=== PATIENT | female | born 1950 | race Caucasian/White ===

== ENCOUNTER 2021-01-14 05:58 | Inpatient (IN) | payer MEDICARE, MEDICAID ==
[~2021-01-14] VITALS: Ht 162.6 cm; Wt 54.5 kg
[2021-01-14] MEDS ORDERED: nitroGLYCERIN 1gm ointment UD TP ONE (06:25)
[2021-01-14] MEDS ORDERED: CefTRIAXone/D5W-Rocephin 1gm 50 ML IV ONE (07:10)
[2021-01-14 07:30] LABS: BASOPHILS # (AUTO) 0.1 X10'3 (0-0.2); BASOPHILS % (AUTO) 0.4 % (0-1); EOSINOPHILS % (AUTO) 0 % (0-6); HEMATOCRIT 35.2 % (35.0-45.0); HEMOGLOBIN 11.7 g/dl (12.0-16.0); LYMPHOCYTES # (AUTO) 0.9 X10'3 (1.1-4.8); LYMPHOCYTES % (AUTO) 4.5 % (21-51); MEAN CORPUSCULAR HEMOGLOBIN 27.7 PG (27.0-31.0); MEAN CORPUSCULAR HGB CONC 33.1 g/dL (33.0-36.5); MEAN CORPUSCULAR VOLUME 83.7 FL (78-98); MEAN PLATELET VOLUME 8.4 FL (7.4-10.4); MONOCYTES # (AUTO) 0.8 X10'3 (0-0.9); MONOCYTES % (AUTO) 4.1 % (2-12); NEUTROPHILS # (AUTO) 17.3 X10'3 (1.8-7.7); PLATELET COUNT 328 X10'3 (140-440); RED BLOOD COUNT 4.21 X10'6 (4.20-5.60)
[2021-01-14 07:38] LABS: UA COLLECTION TYPE CLN CATCH MIDSTREAM
[2021-01-14 07:39] LABS: CLARITY,URINE CLEAR (Clear); COLOR,URINE YELLOW (Yellow); GLUCOSE, URINE NEGATIVE (Neg); KETONES,URINE NEGATIVE (Neg); LEUKOCYTE ESTERASE ,URINE NEGATIVE (Neg); NITRITES, URINE NEGATIVE (Neg); OCCULT BLOOD,URINE NEGATIVE (Neg); PH,URINE 6.5 (4.8-8.0); PROTEIN,URINE NEGATIVE (Neg); UROBILINOGEN,URINE 0.2 E.U/dL (0.2-1.0)
[2021-01-14 07:43] LABS: ALANINE AMINOTRANSFERASE 17 U/L (12-78); ALBUMIN 3.7 G/DL (3.4-5.0); ALBUMIN/GLOBULIN RATIO 0.9 (1.1-1.5); ALKALINE PHOSPHATASE 111 IU/L (46-116); ANION GAP 10 (8-16); ASPARTATE AMINO TRANSFERASE 15 U/L (10-37); BILIRUBIN,TOTAL 0.4 MG/DL (0.1-1.0); BLOOD UREA NITROGEN 12 MG/DL (7-18); BUN/CREATININE RATIO 11.9 (6.6-38.0); CALCIUM 8.8 MG/DL (8.5-10.1); CHLORIDE 104 MMOL/L (99-107); CREATININE 1.01 MG/DL (0.40-0.90); GLUCOSE 178 MG/DL (70-104); POTASSIUM 3.1 MMOL/L (3.5-5.1); SODIUM 140 MMOL/L (135-145); TOTAL PROTEIN 7.7 G/DL (6.4-8.2); eGFR 54 ML/MIN
[2021-01-14 07:46] LABS: BILIRUBIN,DIRECT 0.1 MG/DL (0-0.3); LIPASE 62 U/L (73-393); TROPONIN I < 0.04 NG/ML (0.0-0.05)
[2021-01-14 07:48] LABS: URINE AMPHETAMINE SCREEN POSITIVE (Neg); URINE BARBITUATE SCREEN NEGATIVE (Neg); URINE BENZODIAZEPINES SCREEN NEGATIVE (Neg); URINE CANNABINOID SCREEN POSITIVE (Neg); URINE COCAINE SCREEN NEGATIVE (Neg); URINE METHADONE SCREEN NEGATIVE (Neg); URINE OPIATE SCREEN NEGATIVE (Neg); URINE PHENCYCLIDINE SCREEN NEGATIVE (Neg)
[2021-01-14] MEDS ORDERED: iohexol 300mg/ml 100ml inj. ONE (08:05)
[2021-01-14] MEDS ORDERED: normal saline 1000ml 1,000 ML IV ONE (09:05)
[2021-01-14] MEDS ORDERED: metoclopramide 5 mg/ml inj IV PRN (09:55)
[2021-01-14] MEDS ORDERED: azithromycin/NS 500mg/250ml 250 ML IV SCH (09:55)
[2021-01-14] MEDS ORDERED: magnesium 4gm in 100ml NS 100 ML IV PRN (09:55)
[2021-01-14] MEDS ORDERED: ondansetron/PF 4mg/2ml inj IV PRN (09:55)
[2021-01-14] MEDS ORDERED: magnesium Cl slow-release 64mg tablet PO PRN (09:55)
[2021-01-14] MEDS ORDERED: acetaminophen 650mg rectal suppository RC PRN (09:55)
[2021-01-14] MEDS ORDERED: magnesium 2GM in 50ml NS 50 ML IV PRN (09:55)
[2021-01-14] MEDS ORDERED: potassium Cl 40MEQ/1/2NS 520ml 520 ML IV PRN (09:55)
[2021-01-14] MEDS ORDERED: mag hydrox/Alum hydrox/simeth 30ml oral suspension PO PRN (09:55)
[2021-01-14] MEDS ORDERED: potassium Cl 20 mEq SR tablet PO PRN (09:55)
[2021-01-14] MEDS ORDERED: magnesium hydroxide 30ml (MOM) UD suspension PO PRN (09:55)
[2021-01-14] MEDS ORDERED: acetaminophen 325mg tablet PO PRN ×2 (09:55)
[2021-01-14] MEDS ORDERED: HYDROcodone/acetaminophen 10/325mg tab PO PRN (09:55)
[2021-01-14] MEDS ORDERED: HYDROcodone/acetaminophen 5mg/325mg tablet PO PRN (09:55)
[2021-01-14 11:17] LABS: PARTIAL THROMBOPLASTIN TIME 36 SECONDS (22-32)
[2021-01-14] MEDS: normal saline 1000ml 1,000 ML IV SCH (11:44)
--- NOTE | 2021-01-14 12:38 | NUR ---
assumed care of pt from Ghazala RAE
[2021-01-14] MEDS ORDERED: UNABLE TO OBTAIN (12:48)
--- NOTE | 2021-01-14 12:50 | NUR ---
FIRST CONTACT WITH PT, PT IS LYING ON HER BACK, OPENS EYES VERY BRIEFLY TO PAIN, PT NOT ANSWERING QUESTIONS, VERGAL IS UNCOMPREHENSIABLE, NOT FOLLOWING COMMANDS, RESPS EVEN AND SLIGHTLY LABORED, LUNGS COARSE BILATERALLY, GURGLING SOUND IN THROAT, PT IS ON ROOM AIR PULSE OX WITH GOOD PLETH 96%, SINUS RHYTHM ON THE MONITOR NO ECTOPY, RESP RATE IS 28, NO SWELLING TO EXTREMITIES, IV TO LEFT AC IS PATENT AND CLEAR, NS INFUSING AT 7OML/HR
--- NOTE | 2021-01-14 13:15 | NUR ---
paged Dr. Schmitt, waiting for call back
--- NOTE | 2021-01-14 13:30 | NUR ---
Dr Schmitt aware of pt being obtunded, will place order for MRI of brain and med for blood pressure
--- NOTE | 2021-01-14 14:20 | NUR ---
Dr Schmitt gave verbal pt is ok to go off monitor to CT and MRI, pt to go to CT first
[2021-01-14] MEDS: hydrALAZINE 20mg/ml inj. IV PRN (14:24)
[2021-01-14] MEDS: potassium Cl 40MEQ/1/2NS 520ml 520 ML IV PRN (14:27)
--- NOTE | 2021-01-14 14:37 | NUR ---
senior engineering technician said CTA of head cannot be done as she has already received contrast today, have to wait 24 hours before doing per senior engineering technician, sent page to Dr Schmitt and senior engineering technician said she would let Dr Schmitt know as well
--- NOTE | 2021-01-14 15:00 | NUR ---
PT IS SITTING UP IN BED, INCONTINENT OF LARGE AMOUNT OF URINE, CHANGED PT AND BEDDING, NO SKIN BREAKDOWN TO BACK OR COCCYX, PT IS MOVING ALL MOVING ALL EXTREMITIES, EYES OPEN TO VOICE, ORIENTED TO PERSON ONLY, STILL NOT FOLLOWING COMMANDS, DR DURHAM GAVE VERBAL ORDER TO SEND PT TO MRI
--- NOTE | 2021-01-14 15:21 | NUR ---
PHONE NUMBER ON FILE IS NOT IN SERVICE, UNABLE TO CONTACT FAMILY FOR INFO NEEDED FOR MRI SCREENING SHEET
--- NOTE | 2021-01-14 15:23 | NUR ---
CALLED MRI, PER TECH PT WILL DONE AT END OF DAY OR TOMORROW, TECH IS AWARE PT UNABLE TO FILL OUT SCREENING SHEET, NOR IS FAMILY AVAILABLE
[2021-01-14] MEDS: VANCOmycin 1250MG/NS 250ml Bag 250 ML IV ONE ×2 (15:45→17:02)
--- NOTE | 2021-01-14 16:08 | NUR ---
Jeronimo Oconnor, son, called to talk with pt, she is sleeping,
--- NOTE | 2021-01-14 17:01 | NUR ---
ATTEMPTED REPORT, NURSE TO CALL BACK
--- NOTE | 2021-01-14 17:35 | NUR ---
REPORT TO MADALYN RAE
--- NOTE | 2021-01-14 17:40 | NUR ---
Received report from KYRA García in ED - pending patient.
--- NOTE | 2021-01-14 18:00 | NUR ---
SHANAE BYRNE, SON,
--- NOTE | 2021-01-14 18:41 | NUR ---
Problems reprioritized. Patient report given, questions answered & plan of care reviewed with KYRA aBllesteros - still pending patient from ED.
[2021-01-14 19:20] VITALS: BP 155/56
[2021-01-14] MEDS: K and/or MAG REPLACEMENT MC SCH (20:00)
[2021-01-14] MEDS ORDERED: docusate sod 100mg capsule PO SCH (20:00)
[2021-01-14] MEDS: heparin, porcine 5000 units/ml vial SQ SCH (20:07)
[2021-01-14] MEDS ORDERED: temazepam 15mg capsule PO PRN (21:00)
[2021-01-14] MEDS: piperacillin/tazo 3.375gm/50ml 50 ML IV SCH (21:47)
[2021-01-14 22:00] VITALS: BP 158/67
[2021-01-15] VITALS (7 sets, daily range): BP systolic 102–167; BP diastolic 42–71
[2021-01-15] MEDS: piperacillin/tazo 3.375gm/50ml 50 ML IV SCH ×3 (04:30→18:00)
[2021-01-15] MEDS: normal saline 1000ml 1,000 ML IV SCH ×2 (04:30→14:31)
--- NOTE | 2021-01-15 06:14 | NUR ---
Problems reprioritized. Patient report given, questions answered & plan of care reviewed with KYRA Rizvi.
[2021-01-15 07:05] LABS: BASOPHILS # (AUTO) 0.1 X10'3 (0-0.2); BASOPHILS % (AUTO) 0.3 % (0-1); EOSINOPHILS % (AUTO) 0 % (0-6); HEMATOCRIT 31.8 % (35.0-45.0); HEMOGLOBIN 10.3 g/dl (12.0-16.0); LYMPHOCYTES # (AUTO) 1.3 X10'3 (1.1-4.8); LYMPHOCYTES % (AUTO) 5.4 % (21-51); MEAN CORPUSCULAR HEMOGLOBIN 27.2 PG (27.0-31.0); MEAN CORPUSCULAR HGB CONC 32.4 g/dL (33.0-36.5); MEAN CORPUSCULAR VOLUME 83.9 FL (78-98); MEAN PLATELET VOLUME 8.3 FL (7.4-10.4); MONOCYTES % (AUTO) 3.9 % (2-12); NEUTROPHILS # (AUTO) 22.1 X10'3 (1.8-7.7); NEUTROPHILS % (AUTO) 90.4 % (42-75); PLATELET COUNT 269 X10'3 (140-440); RED BLOOD COUNT 3.79 X10'6 (4.20-5.60); RED CELL DISTRIBUTION WIDTH 14.2 % (11.5-14.5); WHITE BLOOD COUNT 24.5 X10'3 (4.5-11.0)
[2021-01-15 07:22] LABS: ALANINE AMINOTRANSFERASE 18 U/L (12-78); ALBUMIN 2.5 G/DL (3.4-5.0); ALBUMIN/GLOBULIN RATIO 0.7 (1.1-1.5); ALKALINE PHOSPHATASE 104 IU/L (46-116); ANION GAP 10 (8-16); ASPARTATE AMINO TRANSFERASE 18 U/L (10-37); BILIRUBIN,TOTAL 0.6 MG/DL (0.1-1.0); BLOOD UREA NITROGEN 13 MG/DL (7-18); CALCIUM 8.3 MG/DL (8.5-10.1); CHLORIDE 107 MMOL/L (99-107); CREATININE 0.93 MG/DL (0.40-0.90); GLUCOSE 120 MG/DL (70-104); POTASSIUM 3.2 MMOL/L (3.5-5.1); SODIUM 139 MMOL/L (135-145); TOTAL CARBON DIOXIDE 22.3 MMOL/L (24-32); TOTAL PROTEIN 6.2 G/DL (6.4-8.2); eGFR 60 ML/MIN
[2021-01-15] MEDS: hydrALAZINE 20mg/ml inj. IV PRN (07:28)
[2021-01-15] MEDS: heparin, porcine 5000 units/ml vial SQ SCH ×2 (07:29→20:38)
[2021-01-15] MEDS: K and/or MAG REPLACEMENT MC SCH ×2 (08:00→20:00)
[2021-01-15] MEDS ORDERED: CefTRIAXone/D5W-Rocephin 1gm 50 ML IV SCH (08:00)
--- NOTE | 2021-01-15 09:14 | NUR ---
Called son Jeronimo Oconnor [phone] - left message to call back for MRI approval. Called John Oconnor [phone]. Left message to call back as well. Need approval over phone for MRI of head.
[2021-01-15] MEDS: potassium Cl 40MEQ/1/2NS 520ml 520 ML IV PRN (10:12)
--- NOTE | 2021-01-15 10:45 | NUR ---
Bed side swallow study performed - pt showed no signs of aspiration. Will contact MD to see if patient can eat now.
[2021-01-15] MEDS: lisinopril 20mg tablet PO SCH (10:52)
[2021-01-15] MEDS ORDERED: iohexol 350MG/ML 100ml bottle IV ONE (11:22)
--- NOTE | 2021-01-15 12:20 | NUR ---
Rosalina Schmitt PAGER ID: [phone] MESSAGE: Room 3013A. Mary Alice Oconnor. MRI/CTA performed. Bed side swallow study performed - pt showed no signs of aspiration. Ok to eat lunch? Thanks, Belkys [phone]
--- NOTE | 2021-01-15 12:22 | NUR ---
Per MD - pt ok to eat regular diet.
[2021-01-15] MEDS: vancomycin/NS 1 GM ADD-VANTAGE 250 ML IV SCH (16:04)
--- NOTE | 2021-01-15 17:45 | NUR ---
Pt has been sleeping most of the day. She has been easily aroused and is only oriented to name. Pleasantly confused and was even able to walk with PT this AM. She has been for a CTA of neck/head and MRI - Pending another MRI 01/16 for orbits, face, neck d/t 2x2 cm lesion right thyroid with and without contrast. Continue to monitor patient throughout shift.
--- NOTE | 2021-01-15 18:29 | NUR ---
Problems reprioritized. Patient report given, questions answered & plan of care reviewed with KYRA Shay.
--- NOTE | 2021-01-15 18:57 | NUR ---
Patient in room PCU 3013. I have received report from MADALYN RAE and had the opportunity to ask questions and assume patient care.
[2021-01-15] MEDS: lactobacillus rhamnosus 10,000 MMU CELLS/CAPSULE PO SCH (20:38)
[2021-01-16] MEDS: piperacillin/tazo 3.375gm/50ml 50 ML IV SCH ×3 (00:39→16:06)
[2021-01-16 02:00] VITALS: BP 162/72
[2021-01-16] MEDS: normal saline 1000ml 1,000 ML IV SCH ×2 (04:50→19:07)
[2021-01-16 06:00] VITALS: BP 145/67
[2021-01-16 06:22] LABS: BASOPHILS # (AUTO) 0.1 X10'3 (0-0.2); BASOPHILS % (AUTO) 0.6 % (0-1); EOSINOPHILS # (AUTO) 0.1 X10'3 (0-0.9); EOSINOPHILS % (AUTO) 0.8 % (0-6); HEMATOCRIT 28.9 % (35.0-45.0); HEMOGLOBIN 9.5 g/dl (12.0-16.0); LYMPHOCYTES # (AUTO) 1.4 X10'3 (1.1-4.8); LYMPHOCYTES % (AUTO) 10.9 % (21-51); MEAN CORPUSCULAR HEMOGLOBIN 27.4 PG (27.0-31.0); MEAN CORPUSCULAR VOLUME 83.1 FL (78-98); MEAN PLATELET VOLUME 8.4 FL (7.4-10.4); MONOCYTES # (AUTO) 0.6 X10'3 (0-0.9); MONOCYTES % (AUTO) 4.3 % (2-12); NEUTROPHILS % (AUTO) 83.4 % (42-75); PLATELET COUNT 238 X10'3 (140-440); RED BLOOD COUNT 3.47 X10'6 (4.20-5.60); RED CELL DISTRIBUTION WIDTH 14.4 % (11.5-14.5); WHITE BLOOD COUNT 13.2 X10'3 (4.5-11.0)
--- NOTE | 2021-01-16 06:33 | NUR ---
Problems reprioritized. Patient report given, questions answered & plan of care reviewed with SANTIAGO RN.
[2021-01-16 06:40] LABS: ALANINE AMINOTRANSFERASE 16 U/L (12-78); ALBUMIN 2.4 G/DL (3.4-5.0); ALBUMIN/GLOBULIN RATIO 0.6 (1.1-1.5); ALKALINE PHOSPHATASE 110 IU/L (46-116); ANION GAP 12 (8-16); ASPARTATE AMINO TRANSFERASE 12 U/L (10-37); BILIRUBIN,TOTAL 0.3 MG/DL (0.1-1.0); BLOOD UREA NITROGEN 15 MG/DL (7-18); BUN/CREATININE RATIO 15.6 (6.6-38.0); CALCIUM 8.3 MG/DL (8.5-10.1); CHLORIDE 107 MMOL/L (99-107); CREATININE 0.96 MG/DL (0.40-0.90); GLUCOSE 88 MG/DL (70-104); MAGNESIUM 2.1 MG/DL (1.5-2.4); POTASSIUM 3.1 MMOL/L (3.5-5.1); SODIUM 140 MMOL/L (135-145); TOTAL CARBON DIOXIDE 20.7 MMOL/L (24-32); TOTAL PROTEIN 6.1 G/DL (6.4-8.2); eGFR 57 ML/MIN
[2021-01-16] MEDS: K and/or MAG REPLACEMENT MC SCH ×2 (08:18→21:10)
[2021-01-16] MEDS: lactobacillus rhamnosus 10,000 MMU CELLS/CAPSULE PO SCH ×2 (08:23→20:59)
[2021-01-16] MEDS: potassium Cl 20 mEq SR tablet PO PRN ×2 (08:24→20:59)
[2021-01-16] MEDS: lisinopril 20mg tablet PO SCH (08:24)
[2021-01-16] MEDS: heparin, porcine 5000 units/ml vial SQ SCH ×2 (08:25→21:02)
--- NOTE | 2021-01-16 08:46 | NUR ---
LAB VALUE TAKEN FROM LAB REPORTED TO PRIMARY RN.
[2021-01-16 11:00] VITALS: BP 151/57
--- NOTE | 2021-01-16 12:57 | NUR ---
Paged Dr. Schmitt PAGER ID: [phone] MESSAGE: [phone] Mary Alice Oconnor leaving AMA. Liliana RAE [phone] Addendum: 01/16/21 at 1302 by Liliana Huerta RN Dr. Schmitt deemed patient too confused to leave AMA.
--- NOTE | 2021-01-16 13:21 | NUR ---
PAGER ID: [phone] MESSAGE: CHELSEA ON TELE@[phone], I TALKED TO GEOFF ARROYO REGARDING [id number]. WE ARE NOT ABLE TO KEEP HER HERE UNLESS THERE IS A HOLD ORDER ON HER, OTHERWISE SHE WILL AMA.
--- NOTE | 2021-01-16 13:32 | NUR ---
PAGER ID: [phone] MESSAGE: CHELSEA NERI [facility]@[phone], ROB WHITE, 179 HOLD IS WHAT IS NEEDED, NO NEED TO GO BACK TO ER, [facility] TO EVAL TOMARR[facility]. THX
--- NOTE | 2021-01-16 14:25 | NUR ---
Agree with KYRA Trejosecond vp hr assessment.
[2021-01-16 15:00] VITALS: BP 150/59
[2021-01-16] MEDS: vancomycin/NS 1 GM ADD-VANTAGE 250 ML IV SCH (16:06)
[2021-01-16 18:00] VITALS: BP 152/64
--- NOTE | 2021-01-16 18:30 | NUR ---
Patient in room PCU 3013. I have received report from Brittanie RAE and had the opportunity to ask questions and assume patient care.
[2021-01-17] VITALS (9 sets, daily range): BP systolic 161–196; BP diastolic 58–82
[2021-01-17] MEDS: piperacillin/tazo 3.375gm/50ml 50 ML IV SCH ×3 (00:23→19:11)
[2021-01-17] MEDS: hydrALAZINE 20mg/ml inj. IV PRN ×3 (00:28→19:07)
[2021-01-17] MEDS ORDERED: hydrALAZINE 20mg/ml inj. IV ONE (02:40)
--- NOTE | 2021-01-17 02:42 | NUR ---
Called Md with regard to elevated BP of 185/58 RUE, 176/7 LUE. NEW ORDER RECEIVED FOR 1 TIME DOSE NOW OF 5MG iv HYDRALZINE.
--- NOTE | 2021-01-17 06:15 | NUR ---
Patient in room PCU 3013. I have received report from KYRA Dean and had the opportunity to ask questions and assume patient care.
--- NOTE | 2021-01-17 06:20 | NUR ---
Problems reprioritized. Patient report given, questions answered & plan of care reviewed with Liliana RAE.
[2021-01-17 07:10] LABS: BASOPHILS # (AUTO) 0.1 X10'3 (0-0.2); BASOPHILS % (AUTO) 1.1 % (0-1); EOSINOPHILS # (AUTO) 0.1 X10'3 (0-0.9); EOSINOPHILS % (AUTO) 0.7 % (0-6); HEMATOCRIT 32.2 % (35.0-45.0); HEMOGLOBIN 10.9 g/dl (12.0-16.0); LYMPHOCYTES # (AUTO) 1.2 X10'3 (1.1-4.8); LYMPHOCYTES % (AUTO) 12.8 % (21-51); MEAN CORPUSCULAR HEMOGLOBIN 27.8 PG (27.0-31.0); MEAN CORPUSCULAR HGB CONC 33.9 g/dL (33.0-36.5); MEAN CORPUSCULAR VOLUME 82.2 FL (78-98); MEAN PLATELET VOLUME 8.6 FL (7.4-10.4); MONOCYTES # (AUTO) 0.5 X10'3 (0-0.9); MONOCYTES % (AUTO) 5.4 % (2-12); NEUTROPHILS # (AUTO) 7.2 X10'3 (1.8-7.7); PLATELET COUNT 297 X10'3 (140-440); RED BLOOD COUNT 3.92 X10'6 (4.20-5.60); WHITE BLOOD COUNT 9.1 X10'3 (4.5-11.0)
[2021-01-17] MEDS: lactobacillus rhamnosus 10,000 MMU CELLS/CAPSULE PO SCH ×2 (07:49→19:27)
[2021-01-17 07:50] LABS: ALANINE AMINOTRANSFERASE 16 U/L (12-78); ALBUMIN 2.7 G/DL (3.4-5.0); ALBUMIN/GLOBULIN RATIO 0.6 (1.1-1.5); ALKALINE PHOSPHATASE 146 IU/L (46-116); ANION GAP 14 (8-16); ASPARTATE AMINO TRANSFERASE 14 U/L (10-37); BILIRUBIN,TOTAL 0.3 MG/DL (0.1-1.0); BLOOD UREA NITROGEN 9 MG/DL (7-18); BUN/CREATININE RATIO 11.3 (6.6-38.0); CALCIUM 8.7 MG/DL (8.5-10.1); CHLORIDE 108 MMOL/L (99-107); GLUCOSE 96 MG/DL (70-104); MAGNESIUM 2.1 MG/DL (1.5-2.4); POTASSIUM 3.9 MMOL/L (3.5-5.1); SODIUM 142 MMOL/L (135-145); TOTAL CARBON DIOXIDE 20.1 MMOL/L (24-32); TOTAL PROTEIN 6.9 G/DL (6.4-8.2); eGFR 71 ML/MIN
[2021-01-17] MEDS: lisinopril 20mg tablet PO SCH (07:50)
[2021-01-17] MEDS: heparin, porcine 5000 units/ml vial SQ SCH ×2 (07:51→19:27)
[2021-01-17] MEDS: K and/or MAG REPLACEMENT MC SCH ×2 (08:00→20:00)
[2021-01-17] MEDS: normal saline 1000ml 1,000 ML IV SCH ×2 (10:04→23:43)
--- NOTE | 2021-01-17 14:05 | NUR ---
Paged Dr. Feldman PAGER ID: [phone] MESSAGE: [phone] Mary Alice Oconnor; unable to do MRI as patient has stents in carotid; would you like US or CT? Liliana RAE [phone]
[2021-01-17] MEDS ORDERED: VANCOMYCIN LEVEL IV ONE (15:30)
[2021-01-17] MEDS: vancomycin/NS 1 GM ADD-VANTAGE 250 ML IV SCH (16:25)
--- NOTE | 2021-01-17 18:36 | NUR ---
Orientee documentation: I have reviewed and agree with all interventions, assessments performed and documented by KYRA Ramesh.
--- NOTE | 2021-01-17 18:36 | NUR ---
Student Medication Administration: For this medication-pass time frame, all medication were reviewed, dispensed, administered and documented per hospital policy by KYRA Ramesh.
--- NOTE | 2021-01-17 18:40 | NUR ---
Patient in room PCU 3013. I have received report from SUNNY RAE and had the opportunity to ask questions and assume patient care.
[2021-01-17] MEDS ORDERED: aspirin 81mg, enteric-coated 1 TAB TABLET.DR PO ONE (23:25)
[2021-01-18] VITALS (10 sets, daily range): BP systolic 63–203; BP diastolic 61–89
[2021-01-18] MEDS: piperacillin/tazo 3.375gm/50ml 50 ML IV SCH ×4 (00:12→23:19)
[2021-01-18] MEDS: vancomycin/NS 1 GM ADD-VANTAGE 250 ML IV SCH ×2 (04:42→16:09)
--- NOTE | 2021-01-18 06:30 | NUR ---
Problems reprioritized. Patient report given, questions answered & plan of care reviewed with VALENTIN RAE.
[2021-01-18 06:56] LABS: BASOPHILS # (AUTO) 0.1 X10'3 (0-0.2); EOSINOPHILS # (AUTO) 0.1 X10'3 (0-0.9); EOSINOPHILS % (AUTO) 1.5 % (0-6); HEMATOCRIT 34.7 % (35.0-45.0); HEMOGLOBIN 11.5 g/dl (12.0-16.0); LYMPHOCYTES # (AUTO) 1.5 X10'3 (1.1-4.8); LYMPHOCYTES % (AUTO) 22.9 % (21-51); MEAN CORPUSCULAR HEMOGLOBIN 27.6 PG (27.0-31.0); MEAN CORPUSCULAR HGB CONC 33.1 g/dL (33.0-36.5); MEAN CORPUSCULAR VOLUME 83.4 FL (78-98); MEAN PLATELET VOLUME 8.3 FL (7.4-10.4); MONOCYTES # (AUTO) 0.5 X10'3 (0-0.9); MONOCYTES % (AUTO) 7.8 % (2-12); NEUTROPHILS # (AUTO) 4.5 X10'3 (1.8-7.7); NEUTROPHILS % (AUTO) 66.8 % (42-75); PLATELET COUNT 358 X10'3 (140-440); RED BLOOD COUNT 4.16 X10'6 (4.20-5.60); RED CELL DISTRIBUTION WIDTH 14.2 % (11.5-14.5); WHITE BLOOD COUNT 6.8 X10'3 (4.5-11.0)
[2021-01-18 07:19] LABS: ALANINE AMINOTRANSFERASE 12 U/L (12-78); ALBUMIN 2.6 G/DL (3.4-5.0); ALBUMIN/GLOBULIN RATIO 0.6 (1.1-1.5); ALKALINE PHOSPHATASE 119 IU/L (46-116); ANION GAP 10 (8-16); ASPARTATE AMINO TRANSFERASE 11 U/L (10-37); BILIRUBIN,TOTAL 0.3 MG/DL (0.1-1.0); BLOOD UREA NITROGEN 6 MG/DL (7-18); BUN/CREATININE RATIO 6.7 (6.6-38.0); CALCIUM 8.8 MG/DL (8.5-10.1); CHLORIDE 107 MMOL/L (99-107); CHOL/HDL RATIO 5.9 (0.00-4.99); CHOLESTEROL 195 MG/DL (0-200); CREATININE 0.89 MG/DL (0.40-0.90); GLUCOSE 102 MG/DL (70-104); HDL CHOLESTEROL 33 MG/DL (35-60); LDL CHOLESTEROL 125 MG/DL (50-100); MAGNESIUM 2.1 MG/DL (1.5-2.4); POTASSIUM 3.6 MMOL/L (3.5-5.1); SODIUM 139 MMOL/L (135-145); TOTAL CARBON DIOXIDE 21.7 MMOL/L (24-32); TOTAL PROTEIN 6.7 G/DL (6.4-8.2); TRIGLYCERIDES 183 MG/DL (20-135); eGFR 63 ML/MIN
[2021-01-18] MEDS: K and/or MAG REPLACEMENT MC SCH ×2 (08:00→20:00)
[2021-01-18] MEDS: aspirin 81mg, enteric-coated 1 TAB TABLET.DR PO SCH (08:28)
[2021-01-18] MEDS: lisinopril 20mg tablet PO SCH (08:29)
[2021-01-18] MEDS: heparin, porcine 5000 units/ml vial SQ SCH ×2 (08:29→20:19)
[2021-01-18] MEDS: atorvastatin 20mg tablet PO SCH (08:29)
[2021-01-18] MEDS: normal saline 1000ml 1,000 ML IV SCH (08:30)
[2021-01-18] MEDS: lactobacillus rhamnosus 10,000 MMU CELLS/CAPSULE PO SCH ×2 (08:32→20:18)
--- NOTE | 2021-01-18 10:41 | NUR ---
Hospitalist aware that MRI can not be done r/t carotid stents and unknown history of . States to cancel.
[2021-01-18] MEDS: hydrALAZINE 20mg/ml inj. IV PRN ×2 (11:34→19:05)
--- NOTE | 2021-01-18 11:39 | NUR ---
tele neuro consult completed. unaware what baseline is on pt. Pt. has been improving since she is here. 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 no new recommendations at this time. states he will discuss results with hospitalist.
--- NOTE | 2021-01-18 12:11 | NUR ---
Poison control called by community outreach advocate. Recommendations for meth overdose include Benzo for tremors/seizures, telemetry monitoring, and continuation of VS monitoring for changes or changes in behavior.
--- NOTE | 2021-01-18 13:29 | NUR ---
PAGER ID: [phone] MESSAGE: BP HAS BEEN ELEVATED. HYDRALAZINE GIVEN PER ORDER. SEE VS. LS CRACKLES THROUGHOUT WORSENING THROUGHOUT AM. FLUIDS TKO? LASIX? GFR 63 VALENTIN [phone]
--- NOTE | 2021-01-18 15:14 | NUR ---
PAGER ID: [phone] MESSAGE: tammi BYRNE [id number] BP MANUALLY ASSESSED AND IS 168/60 WITH 74 HR. PRN 10 MG HYDRALAZINE ALREADY GIVEN A FEW HOURS AGO. VALENTIN [phone]
[2021-01-18] MEDS ORDERED: ipratropium/albuterol 3ml nebule NEB PRN (17:05)
[2021-01-18] MEDS: amLODIPine 5mg tablet PO SCH (17:26)
--- NOTE | 2021-01-18 18:41 | NUR ---
GAVE REPORT TO DEION RAE.
[2021-01-18] MEDS: ipratropium/albuterol 3ml nebule NEB SCH (20:38)
[2021-01-19 02:00] VITALS: BP 173/68
[2021-01-19] MEDS: ipratropium/albuterol 3ml nebule NEB SCH ×2 (02:14→10:10)
[2021-01-19] MEDS: hydrALAZINE 20mg/ml inj. IV PRN (03:29)
[2021-01-19] MEDS ORDERED: VANCOMYCIN LEVEL IV ONE (03:30)
[2021-01-19] MEDS: vancomycin/NS 1 GM ADD-VANTAGE 250 ML IV SCH (04:00)
[2021-01-19 04:08] LABS: BASOPHILS # (AUTO) 0.1 X10'3 (0-0.2); BASOPHILS % (AUTO) 1.3 % (0-1); EOSINOPHILS # (AUTO) 0.1 X10'3 (0-0.9); EOSINOPHILS % (AUTO) 1.3 % (0-6); HEMATOCRIT 35.8 % (35.0-45.0); LYMPHOCYTES # (AUTO) 1.5 X10'3 (1.1-4.8); LYMPHOCYTES % (AUTO) 18.2 % (21-51); MEAN CORPUSCULAR HEMOGLOBIN 27.8 PG (27.0-31.0); MEAN CORPUSCULAR HGB CONC 33.6 g/dL (33.0-36.5); MEAN CORPUSCULAR VOLUME 82.9 FL (78-98); MEAN PLATELET VOLUME 8.4 FL (7.4-10.4); MONOCYTES # (AUTO) 0.7 X10'3 (0-0.9); NEUTROPHILS # (AUTO) 5.9 X10'3 (1.8-7.7); NEUTROPHILS % (AUTO) 71.2 % (42-75); PLATELET COUNT 377 X10'3 (140-440); RED BLOOD COUNT 4.32 X10'6 (4.20-5.60); WHITE BLOOD COUNT 8.3 X10'3 (4.5-11.0)
[2021-01-19 04:24] LABS: ALANINE AMINOTRANSFERASE 18 U/L (12-78); ALBUMIN 2.9 G/DL (3.4-5.0); ALBUMIN/GLOBULIN RATIO 0.6 (1.1-1.5); ALKALINE PHOSPHATASE 131 IU/L (46-116); ANION GAP 10 (8-16); BILIRUBIN,TOTAL 0.3 MG/DL (0.1-1.0); BLOOD UREA NITROGEN 7 MG/DL (7-18); BUN/CREATININE RATIO 7.9 (6.6-38.0); CALCIUM 9.2 MG/DL (8.5-10.1); CHLORIDE 107 MMOL/L (99-107); CREATININE 0.89 MG/DL (0.40-0.90); GLUCOSE 121 MG/DL (70-104); MAGNESIUM 2.1 MG/DL (1.5-2.4); SODIUM 141 MMOL/L (135-145); TOTAL CARBON DIOXIDE 24.3 MMOL/L (24-32); TOTAL PROTEIN 7.5 G/DL (6.4-8.2); eGFR 63 ML/MIN
[2021-01-19 04:25] LABS: ASPARTATE AMINO TRANSFERASE 18 U/L (10-37); POTASSIUM 3.9 MMOL/L (3.5-5.1)
[2021-01-19 04:27] LABS: VANCOMYCIN,TROUGH 23.1 UG/ML (6.0-14.0)
[2021-01-19 07:00] VITALS: BP 130/66
--- NOTE | 2021-01-19 07:16 | NUR ---
Patient in room PCU 3013. I have received report from Dianne RAE and had the opportunity to ask questions and assume patient care. Bed alarm placed on patient
[2021-01-19] MEDS: lactobacillus rhamnosus 10,000 MMU CELLS/CAPSULE PO SCH (08:00)
[2021-01-19] MEDS: K and/or MAG REPLACEMENT MC SCH (08:00)
[2021-01-19] MEDS ORDERED: vancomycin inj. 750 MG in normal saline 250ml IV soln 250 ML IV SCH (08:00)
[2021-01-19] MEDS: atorvastatin 20mg tablet PO SCH (08:00)
[2021-01-19] MEDS: lisinopril 20mg tablet PO SCH (08:00)
[2021-01-19] MEDS: piperacillin/tazo 3.375gm/50ml 50 ML IV SCH (08:01)
[2021-01-19] MEDS: amLODIPine 5mg tablet PO SCH (08:01)
[2021-01-19] MEDS: aspirin 81mg, enteric-coated 1 TAB TABLET.DR PO SCH (08:01)
[2021-01-19] MEDS: heparin, porcine 5000 units/ml vial SQ SCH (08:02)
[2021-01-19] MEDS: normal saline 1000ml 1,000 ML IV SCH (08:03)
[2021-01-19 11:00] VITALS: BP 145/47
[2021-01-19] MEDS ORDERED: ALBU8.5H17 INH (12:09)
[2021-01-19] MEDS ORDERED: AMOX-580 PO (12:09)
[2021-01-19] MEDS ORDERED: LISI20TA28 PO (12:09)
[2021-01-19] MEDS ORDERED: BUDE10.22 INH (12:09)
[2021-01-19] MEDS ORDERED: ASPI-1071 PO (12:09)
[2021-01-19] MEDS ORDERED: LACT1CAP26 PO (12:09)
[2021-01-19] MEDS ORDERED: ATOR20TA66 PO (12:09)
--- NOTE | 2021-01-19 12:13 | NUR ---
[place] with poison control called checking up on patient aware MD will be discharging patient today.
--- NOTE | 2021-01-19 14:11 | NUR ---
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 Pt has been able to eat well, mostly 75-100% of meals on Regular diet meeting needs. [facility] 01/18. No nutrition intervention implemented at this time, will continue to monitor. Recs: 1. Continue Regular diet as tolerated 2. Bowel care per rx 3. Weekly wts Addendum: 01/19/21 at [address] Amended: Links added.
[2021-01-19] MEDS ORDERED: NOR5T PO (14:25)
--- NOTE | 2021-01-19 15:00 | NUR ---
Patients lissette De Los Santos here to pick her up. Called Jeronimo her son back who was getting a ride for patient and he stated patient safe to be discharged with other son Filiberto. Patient states she has all her belongings and patient was taken to lissette De Los Santos's vehicle via wheelchair by auxillary.
--- NOTE | 2021-01-19 15:22 | NUR ---
Called Jeronimo to pickle maker patient for discharge he is calling the cousin and he will be here and will call when here so we can bring patient to the lobby. Discharge instructions reviewed with patient and patient verbalized understanding. Student DC'd PIV cannula intact. patient dressed and has all belongings with patient.
--- NOTE | 2021-01-19 17:24 | NUR ---
Called in all RX orders to [facility]. [facility]
[2021-01-20] MEDS ORDERED: VANCOMYCIN LEVEL IV ONE (19:30)
== END 2021-01-19 16:19 | disposition home or self-care (01) | DRG 871 ==
LOC: ER 05:59 → ED HOLD 10:02 → PCU 3S 19:00
PROVIDERS: ADMIT Family Medicine; ATTEND Family Medicine
PROC: BW211ZZ Computerized Tomography (CT Scan) of Abdomen and Pelvis using Low Osmolar Contrast (ICD-10-PCS; principal; 2021-01-14)
PROC: B3251ZZ Computerized Tomography (CT Scan) of Bilateral Common Carotid Arteries using Low Osmolar Contrast (ICD-10-PCS; 2021-01-15)
PROC: B32G1ZZ Computerized Tomography (CT Scan) of Bilateral Vertebral Arteries using Low Osmolar Contrast (ICD-10-PCS; 2021-01-15)
PROC: B32R1ZZ Computerized Tomography (CT Scan) of Intracranial Arteries using Low Osmolar Contrast (ICD-10-PCS; 2021-01-15)
PROC: B3281ZZ Computerized Tomography (CT Scan) of Bilateral Internal Carotid Arteries using Low Osmolar Contrast (ICD-10-PCS; 2021-01-15)
DX: A41.9 Sepsis, unspecified organism (principal); J69.0 Pneumonitis due to inhalation of food and vomit; G92 Toxic encephalopathy; F15.20 Other stimulant dependence, uncomplicated; E04.1 Nontoxic single thyroid nodule; R53.1 Weakness; Z53.29 Procedure and treatment not carried out because of patient's decision for other reasons; F17.200 Nicotine dependence, unspecified, uncomplicated; I10 Essential (primary) hypertension; I65.23 Occlusion and stenosis of bilateral carotid arteries; I65.02 Occlusion and stenosis of left vertebral artery; Z20.822 Contact with and (suspected) exposure to COVID-19; E87.6 Hypokalemia; T43.621A Poisoning by amphetamines, accidental (unintentional), initial encounter; Y92.89 Other specified places as the place of occurrence of the external cause; Z71.6 Tobacco abuse counseling; Z86.73 Personal history of transient ischemic attack (TIA), and cerebral infarction without residual deficits; Z91.19 Patient's noncompliance with other medical treatment and regimen; Z71.51 Drug abuse counseling and surveillance of drug abuser
CPT/HCPCS: 36415; 70450; 70496; 70498; 70551; 71045; 74177; 76536; 80048; 80053; 80061; 80076; 80202; 80305; 81003; 83605; 83690; 83735; 84443; 84484; 85025; 85610; 85730; 87040; 87081; 87635; 93005; 94640; 94760; 99285; C9803; G0378; J0360; J0456; J0696; J1644; J2543; J3370; J3480; J7030; J7050; Q9967

== ENCOUNTER 2021-04-05 22:36 | Emergency (ER) | payer MEDICARE, MEDICAID ==
[~2021-04-05] VITALS: Ht 154.9 cm; Wt 61.4 kg
[~2021-04-05 22:36] MED LIST: ALBU8.5H17 INH; ASPI-1071 PO; ATOR20TA66 PO; BUDE10.22 INH; LACT1CAP26 PO; LISI20TA28 PO; NOR5T PO
[2021-04-05] MEDS ORDERED: amox tr/potassium clavulanate 875/125mg TAB PO ONE (23:05)
[2021-04-05] MEDS ORDERED: AMOX-422 PO (23:10)
[2021-04-05] MEDS ORDERED: ALBU8HFA PO (23:10)
[2021-04-05] MEDS ORDERED: PRED20TA PO (23:10)
[2021-04-05 23:27] VITALS: BP 172/70
--- NOTE | 2021-04-06 01:47 | NUR ---
ATTEMPTED TO CALL PHONE NUMBER IN [employer] CELL NUMBER GIVEN AT D/C TO GIVE PT NEGATIVE COVID RESULTS. HOME NUMBER SAID IT WAS DISCONNECTED AND CELL NUMBER SAID IT WAS NOT ACCEPTING CALLS AT THE TIME. UNABLE TO REACH PT TO GIVE RESULTS.
== END 2021-04-05 23:28 | disposition home or self-care (01) ==
LOC: ER 22:37
DX: J20.9 Acute bronchitis, unspecified (principal); Z20.822 Contact with and (suspected) exposure to COVID-19; J06.9 Acute upper respiratory infection, unspecified; F17.210 Nicotine dependence, cigarettes, uncomplicated; F15.90 Other stimulant use, unspecified, uncomplicated; Z86.73 Personal history of transient ischemic attack (TIA), and cerebral infarction without residual deficits; Z79.82 Long term (current) use of aspirin; Z79.2 Long term (current) use of antibiotics; Z79.899 Other long term (current) drug therapy
CPT/HCPCS: 87635; 99283; C9803

== ENCOUNTER 2021-04-18 01:23 | Emergency (ER) | payer MEDICARE, MEDICAID ==
[~2021-04-18] VITALS: Ht 154.9 cm; Wt 56.8 kg
[~2021-04-18 01:23] MED LIST changes: +ALBU8HFA PO
[2021-04-18 01:31] VITALS: BP 185/86
--- NOTE | 2021-04-18 02:31 | NUR ---
NOT IN LOBBY
--- NOTE | 2021-04-18 02:42 | NUR ---
NOT IN LOBBY
== END 2021-04-18 02:43 | disposition left against medical advice (07) ==
LOC: ER 01:24
DX: R52 Pain, unspecified (principal); Z53.21 Procedure and treatment not carried out due to patient leaving prior to being seen by health care provider

== ENCOUNTER 2021-11-01 | Emergency (ER) | payer MEDICARE, MEDICAID ==
[~2021-11-01] VITALS: Ht 154.9 cm; Wt 56.1 kg
[~2021-11-01] MED LIST changes: -ALBU8.5H17 INH; -ALBU8HFA PO; -ASPI-1071 PO; -ATOR20TA66 PO; -BUDE10.22 INH; -LACT1CAP26 PO; +LEVO750T46 PO; -LISI20TA28 PO; -NOR5T PO
[2021-11-01 00:03] VITALS: BP 193/97
== END 2021-11-01 02:47 | disposition left against medical advice (07) ==
LOC: ER 00:02
DX: K46.9 Unspecified abdominal hernia without obstruction or gangrene (principal); Z53.21 Procedure and treatment not carried out due to patient leaving prior to being seen by health care provider

== ENCOUNTER 2021-11-11 19:29 | Emergency (ER) | payer MEDICARE, MEDICAID ==
[~2021-11-11] VITALS: Ht 154.9 cm; Wt 54.5 kg
[2021-11-11 20:01] VITALS: BP 174/117
[2021-11-11] MEDS ORDERED: ketorolac tromethamine 15mg/ml inj. IM ONE (23:15)
[2021-11-11] MEDS ORDERED: IBUP-1984 PO (23:16)
== END 2021-11-11 23:44 | disposition home or self-care (01) ==
LOC: ER 19:30
DX: K40.90 Unilateral inguinal hernia, without obstruction or gangrene, not specified as recurrent (principal); F15.10 Other stimulant abuse, uncomplicated; J44.9 Chronic obstructive pulmonary disease, unspecified; Z79.899 Other long term (current) drug therapy; Z59.00 Homelessness unspecified; Z79.1 Long term (current) use of non-steroidal anti-inflammatories (NSAID); Z79.2 Long term (current) use of antibiotics
CPT/HCPCS: 96372; 99283; J1885

== ENCOUNTER 2021-12-17 16:01 | Emergency (ER) | payer MEDICARE, MEDICAID ==
[~2021-12-17] VITALS: Ht 167.6 cm; Wt 65.0 kg
[~2021-12-17 16:01] MED LIST changes: -LEVO750T46 PO; +LEVO750T68 PO
[2021-12-17 17:32] LABS: BASOPHILS # (AUTO) 0.1 X10'3 (0-0.2); BASOPHILS % (AUTO) 0.9 % (0-1); EOSINOPHILS # (AUTO) 0.1 X10'3 (0-0.9); EOSINOPHILS % (AUTO) 1.3 % (0-6); HEMATOCRIT 30.1 % (35.0-45.0); HEMOGLOBIN 10.2 g/dl (12.0-16.0); LYMPHOCYTES # (AUTO) 2.3 X10'3 (1.1-4.8); LYMPHOCYTES % (AUTO) 23.4 % (21-51); MEAN CORPUSCULAR HEMOGLOBIN 25.8 PG (27.0-31.0); MEAN CORPUSCULAR HGB CONC 33.9 g/dL (33.0-36.5); MEAN CORPUSCULAR VOLUME 76.2 FL (78-98); MEAN PLATELET VOLUME 7.3 FL (7.4-10.4); MONOCYTES # (AUTO) 0.7 X10'3 (0-0.9); MONOCYTES % (AUTO) 7.1 % (2-12); NEUTROPHILS # (AUTO) 6.5 X10'3 (1.8-7.7); NEUTROPHILS % (AUTO) 67.3 % (42-75); PLATELET COUNT 350 X10'3 (140-440); RED BLOOD COUNT 3.94 X10'6 (4.20-5.60); RED CELL DISTRIBUTION WIDTH 15.6 % (11.5-14.5); WHITE BLOOD COUNT 9.7 X10'3 (4.5-11.0)
[2021-12-17 17:40] LABS: CLARITY,URINE CLOUDY (Clear); COLOR,URINE YELLOW (Yellow); GLUCOSE, URINE NEGATIVE (Neg); KETONES,URINE NEGATIVE (Neg); LEUKOCYTE ESTERASE ,URINE NEGATIVE (Neg); NITRITES, URINE NEGATIVE (Neg); OCCULT BLOOD,URINE NEGATIVE (Neg); PROTEIN,URINE TRACE mg/dl (Neg); UROBILINOGEN,URINE 0.2 E.U/dL (0.2-1.0)
[2021-12-17 17:47] LABS: ALANINE AMINOTRANSFERASE 12 U/L (12-78); ALBUMIN 2.9 G/DL (3.4-5.0); ALBUMIN/GLOBULIN RATIO 0.6 (1.1-1.5); ALKALINE PHOSPHATASE 96 IU/L (46-116); ANION GAP 12 (8-16); ASPARTATE AMINO TRANSFERASE 11 U/L (10-37); BILIRUBIN,TOTAL 0.1 MG/DL (0.1-1.0); BLOOD UREA NITROGEN 18 MG/DL (7-18); BUN/CREATININE RATIO 15.1 (6.6-38.0); CALCIUM 8.1 MG/DL (8.5-10.1); CHLORIDE 107 MMOL/L (99-107); CREATININE 1.19 MG/DL (0.40-0.90); GLUCOSE 89 MG/DL (70-104); LIPASE 131 U/L (73-393); POTASSIUM 3.3 MMOL/L (3.5-5.1); SODIUM 140 MMOL/L (135-145); TOTAL CARBON DIOXIDE 21.5 MMOL/L (24-32); eGFR 45 ML/MIN
[2021-12-17 17:47] LABS: UA COLLECTION TYPE CLN CATCH MIDSTREAM
[2021-12-17 17:48] LABS: BACTERIA,URINE 4+ /HPF (Neg); SQUAMOUS EPITHELIAL CELL,UR MANY /LPF (FEW)
[2021-12-17 17:49] LABS: RBC,URINE 0-2 /HPF (0-2)
--- NOTE | 2021-12-17 18:02 | NUR ---
per lab urine rejectde for culture
[2021-12-17] MEDS ORDERED: POTASSIUM BICARB 20meq eff tab 20 MEQ TABLET.EFF PO ONE (18:25)
[2021-12-17 22:36] LABS: CREATINE KINASE 65 U/L (26-192)
[2021-12-17 23:27] VITALS: BP 136/74
--- NOTE | 2021-12-17 23:29 | NUR ---
Pt ambulated to the lobby with a steady gate to wait for the taxi that was called for her.
== END 2021-12-17 23:29 | disposition home or self-care (01) ==
LOC: ER 16:02
DX: R53.1 Weakness (principal); R47.81 Slurred speech; E87.6 Hypokalemia; F15.10 Other stimulant abuse, uncomplicated; R41.0 Disorientation, unspecified; R10.30 Lower abdominal pain, unspecified; J44.9 Chronic obstructive pulmonary disease, unspecified; Z86.73 Personal history of transient ischemic attack (TIA), and cerebral infarction without residual deficits; Z59.00 Homelessness unspecified; Z88.1 Allergy status to other antibiotic agents
CPT/HCPCS: 36415; 70450; 71045; 80053; 81001; 82550; 83690; 84443; 84484; 85025; 93005; 99285

== ENCOUNTER → 2023-05-22 | Emergency (ER) | payer BC, MEDICAID ==
[~2023-05-22] VITALS: Ht 154.9 cm; Wt 52.1 kg
[~2023-05-22] MED LIST changes: +LIDO700A32 TOP; +SULF1TAB48 PO
[2023-05-22 11:00] LABS: BILIRUBIN,URINE NEGATIVE (Neg); CLARITY,URINE CLEAR (Clear); COLOR,URINE YELLOW (Yellow); GLUCOSE, URINE NEGATIVE (Neg); KETONES,URINE NEGATIVE (Neg); LEUKOCYTE ESTERASE ,URINE NEGATIVE (Neg); NITRITES, URINE NEGATIVE (Neg); OCCULT BLOOD,URINE NEGATIVE (Neg); PH,URINE 6.5 (4.8-8.0); PROTEIN,URINE TRACE mg/dl (Neg)
[2023-05-22 11:09] LABS: BASOPHILS # (AUTO) 0.1 X10'3 (0-0.2); BASOPHILS % (AUTO) 1.3 % (0-1); EOSINOPHILS # (AUTO) 0.1 X10'3 (0-0.9); EOSINOPHILS % (AUTO) 0.6 % (0-6); HEMATOCRIT 33.8 % (35.0-45.0); LYMPHOCYTES # (AUTO) 1.8 X10'3 (1.1-4.8); LYMPHOCYTES % (AUTO) 18.5 % (21-51); MEAN CORPUSCULAR HEMOGLOBIN 26.2 PG (27.0-31.0); MEAN CORPUSCULAR HGB CONC 32.5 g/dL (33.0-36.5); MEAN CORPUSCULAR VOLUME 80.6 FL (78-98); MEAN PLATELET VOLUME 8.2 FL (7.4-10.4); MONOCYTES # (AUTO) 0.6 X10'3 (0-0.9); MONOCYTES % (AUTO) 6.2 % (2-12); NEUTROPHILS # (AUTO) 7.2 X10'3 (1.8-7.7); NEUTROPHILS % (AUTO) 73.4 % (42-75); PLATELET COUNT 425 X10'3 (140-440); RED CELL DISTRIBUTION WIDTH 14.7 % (11.5-14.5); WHITE BLOOD COUNT 9.8 X10'3 (4.5-11.0)
[2023-05-22 11:16] LABS: ALANINE AMINOTRANSFERASE 12 U/L (12-78); ALBUMIN 3.1 G/DL (3.4-5.0); ALBUMIN/GLOBULIN RATIO 0.6 (1.1-1.5); ALKALINE PHOSPHATASE 99 IU/L (46-116); ANION GAP 8 (8-16); ASPARTATE AMINO TRANSFERASE 10 U/L (10-37); BILIRUBIN,TOTAL 0.3 MG/DL (0.1-1.0); BLOOD UREA NITROGEN 12 MG/DL (7-18); CALCIUM 9.1 MG/DL (8.5-10.1); CHLORIDE 102 MMOL/L (99-107); CREATININE 0.75 MG/DL (0.40-0.90); GLUCOSE 98 MG/DL (70-104); POTASSIUM 4.1 MMOL/L (3.5-5.1); SODIUM 137 MMOL/L (135-145); TOTAL CARBON DIOXIDE 27.1 MMOL/L (24-32); TOTAL PROTEIN 8.5 G/DL (6.4-8.2); eCRCL 51 ML/MIN; eGFR 76 ML/MIN
[2023-05-22 11:28] LABS: UA COLLECTION TYPE CLN CATCH MIDSTREAM
[2023-05-22 11:29] LABS: BACTERIA,URINE FEW /HPF (Neg); RBC,URINE 0-2 /HPF (0-2); SQUAMOUS EPITHELIAL CELL,UR FEW /LPF (FEW); WBC,URINE 0-4 /HPF (0-4)
[2023-05-22 12:02] VITALS: BP 172/62; PULSE 91; RESP 18; TEMP 98; O2SAT 100
== END | disposition home or self-care (01) ==
LOC: ER 09:27
DX: L97.919 Non-pressure chronic ulcer of unspecified part of right lower leg with unspecified severity (principal); J44.9 Chronic obstructive pulmonary disease, unspecified; F15.90 Other stimulant use, unspecified, uncomplicated; Z79.2 Long term (current) use of antibiotics; Z79.899 Other long term (current) drug therapy
CPT/HCPCS: 36415; 73630; 80053; 81001; 84145; 85025; 87040; 87070; 87077; 87186; 99284